=== PATIENT | male | born 1980 | race Caucasian/White ===

== ENCOUNTER 2019-04-13 10:25 | Emergency (ER) | payer OTHER, SELFPAY ==
[2019-04-13 10:27] VITALS: BP 136/90; PULSE 73; RESP 16; TEMP 36.6; O2SAT 99; BMI 27.3
--- NOTE | 2019-04-13 10:33 | NURSING ---
NO OLD EKGS
--- NOTE | 2019-04-13 10:35 | EKG12_ITS ---
Test Reason : CP Blood Pressure : / mmHG Vent. Rate : 070 BPM Atrial Rate : 070 BPM P-R Int : 146 ms QRS Dur : 082 ms QT Int : 376 ms P-R-T Axes : 049 039 024 degrees QTc Int : 406 ms Normal sinus rhythm Normal ECG Confirmed by EMMANUEL PLASCENCIA ([id number]), publishing editor DAIN PINEDA ([id number]) on 04/16/2019 9:42:08 AM Referred By: ZAID
--- NOTE | 2019-04-13 10:35 | RAD_ITS ---
STUDY: X-RAY CHEST REASON FOR EXAM: Male, 38 years old. CHEST PAIN TECHNIQUE: Single AP portable view of the chest. COMPARISON: None. FINDINGS: EKG electrodes are seen. The lungs are clear and expanded. There is no demonstrated pleural abnormality. Normal size heart. Normal mediastinum and renae. Normal visualized pulmonary arteries. Normal visualized aortic arch and descending thoracic aorta. Normal visualized thoracic spine. Normal visualized ribs, clavicles, and shoulders. There is no demonstrated abnormality of the visualized soft tissue structures of the upper abdomen. RAD/Chest 1 View (Portable) IMPRESSION: Normal x-ray examination of the chest. Electronically Signed: Xavier Funk, at 11:50 EST , Service support ,
--- NOTE | 2019-04-13 10:44 | ED.VISSUMM ---
- ER Visit Summary Date of Service: 04/13/19 Chief Complaint: [Chest pain] History of Present Illness: The patient is a 38 M [presents to the emergency department complaint of chest discomfort that initially started yesterday. Patient states that he had it for several hours yesterday but then seem to go away in the afternoon. This morning while driving he developed chest discomfort again and left side of his chest. Patient felt lightheaded with it. Patient felt slightly diaphoretic and short of breath with it. Patient had some mild nausea. He is never had discomfort like that before. Patient also overlie several weeks is noticed some discomfort in his left leg with some engorged veins in his left leg and he was worried about a blood clot. No family history of heart disease. Denies recent travel or surgery. No prior history of PE or DVT.] Physical Examination: [HEENT-PERRLA, EOMI. Cranial nerves II through XII grossly intact. TMs clear. Mucous membranes moist. No adenopathy. Cardiovascular-regular rate and rhythm without murmur or ectopy Lungs-clear to auscultation, chest wall stable without crepitus or subcu emphysema Abdomen-normoactive bowel sounds, soft, nontender, no rebound or rigidity, no peritoneal signs. Extremities-intact ?4, normal range of motion, normal pulses, atraumatic] Test Results: [EKG obtained arrival shows sinus rhythm with a ventricular rate of 70 bpm with no acute ST segment changes.] CBC with differential obtained was normal with a white blood cell count of 7.1, hemoglobin 16, hematocrit 47, platelets 247. Chemistries unremarkable. Troponin is less than 0.015. D-dimer was 0.32. Chest x-ray showed nothing acute. Delta troponin was less than 0.015. Emergency Department Course and Treatment: [Had a long discussion with the patient as he has no cardiac risk factors and his work-up in the emergency department is negative including a delta troponin. He understands that his JAKOB risk score is a 0 and feel that he is low risk for a cardiac event. Patient understands that follow-up with his primary care physician for further work-up and evaluation of symptoms persist. I did discuss possibility of admitting him for a stress test however he would prefer not to do this at this time but would prefer to follow-up as an outpatient. Patient had a negative d-dimer and no risk factors for DVT however he has complained of some discomfort in his left leg and some swollen veins and I did offer to obtain a venous Doppler although given the negative d-dimer and no risk factors for DVT felt this would be low yield and he is in agreement and prefer to defer at this time.] Treatment Plan: [Follow-up with primary care physician in 3 to 5 days]. On discharge patient symptoms have resolved. Disposition: [Discharged home in stable condition] Impression: [Chest pain-etiology uncertain] This note was generated with [employer] dictation software. It may contain incorrect words, spelling, and punctuation that were not noted in review of the chart prior to signing
[2019-04-13 10:59] LABS: Absolute Lymphocyte Count 1.85 X10^3/uL (0.83-4.51); Absolute Neutrophil Count 4.6 X10^3/uL (2.0-7.7); Basophil# 0.04 X10^3/uL; Basophil% 0.6 % (0-1); Eosinophil# 0.16 X10^3/uL; Eosinophils% 2.2 % (0-5); Hematocrit 47.2 % (40-54); Hemoglobin 16.4 g/dL (13.0-16.5); Lymphocyte # 1.85 X10^3/ul (4.0); Mean Corp Hgb Conc 34.7 g/dL (32-36); Mean Corpuscular Volume 89.2 fL (80-94); Mean Platelet Vol. 9.7 fl (6.2-12.0); Monocyte# 0.43 X10^3/uL; NRBC Flagged by Analyzer 0 % (0-5); Neutrophil # 4.61 X10^3/uL (2.7-7.7); Neutrophil % 64.8 % (47-70); Platelet Count 247 K/mm3 (150-450); RBC Distribution Width CV 12.7 % (11.6-14.6); RBC Distribution Width SD 41.4 fl (35.1-43.9); Red Blood Count 5.29 M/mm3 (4.6-6.2); White Blood Count 7.1 K/mm3 (4.4-11.0)
[2019-04-13] MEDS: Aspirin 81 MG TAB.CHEW 324 MG PO (11:03)
[2019-04-13 11:04] LABS: D-Dimer Quantitative (DVT/PE) 0.32 FEU/ug/m (0.27-0.49)
[2019-04-13] MEDS: 0.9% Normal Saline 1,000 ML 150 ML IV (11:05)
[2019-04-13 11:11] LABS: Anion Gap 6 (5-15); BUN 13 mg/dL (7-18); Calcium,Total 9.5 mg/dL (8.5-10.1); Chloride 105 mmol/L (98-107); EST Glomerular Filtration Rate 89 mL/min (>60); Est Glom Filt Rate - Afr Amer 107 mL/min (>60); Estimated Creatinine Clearance 103.42 ml/min; Glucose 99 mg/dL (74-106); Potassium 3.9 mmol/L (3.5-5.1); Sodium Level 138 mmol/L (136-145)
[2019-04-13 11:26] VITALS: BP 127/75; PULSE 69; RESP 16; O2SAT 97
[2019-04-13 12:26] VITALS: BP 132/97; PULSE 66; RESP 16; O2SAT 97
[2019-04-13 13:26] VITALS: BP 132/85; PULSE 66; RESP 16; O2SAT 98
--- NOTE | 2019-04-13 14:21 | ED.DEP ---
ED Disposition - Plan for ED Patient: Instructions: CHEST PAIN, Uncertain Cause Referrals: Micky Terrell DO [Primary Care Provider] - 3-5 Days
[2019-04-13 14:47] VITALS: BP 112/74; PULSE 69; RESP 16; O2SAT 98
== END 2019-04-13 14:48 | disposition home or self-care (01) ==
PROVIDERS: Emergency Provider Emergency Medicine; PCP Family Medicine
DX: R07.9 Chest pain, unspecified (principal)
CPT/HCPCS: 71045; 80048; 84484; 85025; 85379; 93005; 96360; 96361; 99285; J7030; A4216